=== PATIENT | male | born 1955 | race Caucasian/White ===

== ENCOUNTER → 2017-01-28 | Outpatient (CLI) | payer OTHER ==
[~2017-01-28] MED LIST: ACET500T37 PO; ALBU17IN INH; ASPI1TAB PO; BOOSLIQ PO; EMEN80CA PO; IBUP-1114 PO; MAGICMW MT; MORP15TA2 PO; OMEP20CA3 PO; OXYC-517 PO; SIMV20TA2 PO; SYMB16INH INH; TIOT18INH INH
--- NOTE | 2017-01-30 09:27 | REP ---
PET/CT: History: Diagnosing lung cancer. 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 Status post chemotherapy. History of increasing lung mass, rule out carcinoma. Comparisons: No recent comparison chest imaging is available. Comparison PET-CT study is reviewed from February 02, 2015. TECHNIQUE: 64 minutes following the intravenous injection of a 10.0 mCi dose of F-18 FDG, three-dimensional PET scintigraphy is acquired from the skull base to the proximal thighs. Triplanar noncontrast CT scanning is acquired through the same anatomic range for attenuation correction, and image registration with scan parameters optimized to minimize radiation exposure to the patient. PET scintigraphy and CT datasets were fused and displayed on a workstation with multiplanar and projection display capability. PET/CT Findings: There is a diffuse pattern of mildly hypermetabolic uptake involving the parotid glands bilaterally. Maximum standard uptake value is 2.9 on the left and 3.3 on the right. No definite intraparotid mass lesion is seen on either side. The findings may reflect parotitis. No other abnormal head and neck uptake is seen. There are advanced changes of COPD in the lungs. There is a band-like irregular parenchymal opacity in the right upper lobe, which shows increased FDG accumulation. This triangular opacity is only mildly hypermetabolic with maximum standard uptake value of 2.9. This may be an area of inflammatory change. There is a peripheral somewhat wedge-shaped opacity in the right middle lobe, which is smaller. This shows mildly hypermetabolic uptake as well, maximum standard uptake value is 3.0 in this lesion, which measures 2.0 cm in diameter. No other abnormal hypermetabolic lung uptake is seen. No hilar or mediastinal hypermetabolic uptake is observed. The lungs are hyperinflated. In the abdomen and pelvis, there is no abnormal hypermetabolic uptake. There is a small distal abdominal aortic aneurysm noted incidentally measuring 2.8 cm in greatest AP dimension. No abnormal skeletal hypermetabolic uptake is seen. There is spondylolisthesis at L5-S1, grade 1 due to bilateral pars defects. Impression: 1. Diffuse bilateral parotid gland uptake suggestive of inflammatory parotitis. 2. Mildly hypermetabolic uptake in two parenchymal opacities in the right lung, one in the right upper lobe, which resembles atelectasis, fibrosis or inflammatory disease; and the other in the right middle lobe. Radiographic followup is advised with CT scanning. Malignancy is not completely excluded. 3. Advanced COPD 4. A 2.8 cm distal abdominal aortic aneurysm. 5. Bilateral spondylolysis at L5 with a grade 1, 4 mm L5-S1 spondylolisthesis. Signed by Anand Oconnell MD 01/30/2017 12:38 P
== END ==
LOC: M PLARAD 09:26
DX: R91.8 Other nonspecific abnormal finding of lung field (principal); J44.9 Chronic obstructive pulmonary disease, unspecified; I71.4 Abdominal aortic aneurysm, without rupture; M43.06 Spondylolysis, lumbar region; M43.17 Spondylolisthesis, lumbosacral region; C09.9 Malignant neoplasm of tonsil, unspecified
CPT/HCPCS: 78815; A9552

== ENCOUNTER → 2018-02-24 | Outpatient (CLI) | payer OTHER | LOC: M PLARAD 07:14 | DX: C76.0 Malignant neoplasm of head, face and neck (principal) | CPT/HCPCS: 78815 ==